=== PATIENT | male | born 1965 | race Caucasian/White ===

== ENCOUNTER 2017-03-11 20:02 | Observation (INO) | payer OTHER ==
[~2017-03-11] VITALS: Ht 165.1 cm; Wt 59.0 kg
[~2017-03-11 20:02] MED LIST: LEVEMIR100 UNIT/1 SC; LISINOPRIL10 M1 PO; MELATONIN5 M7 PO; NOVOLOG100 UNIT/2 SC
--- NOTE | 2017-03-11 21:07 | ED GI/GU/ABDOMINAL COMPLAINT ---
See Addendum History of Present Illness General Chief Complaint: Nausea, Vomiting, Diarrhea Stated Complaint: +V FOR PAST 3 HOURS Source: patient, family Exam Limitations: no limitations Vital Signs & Intake/Output Vital Signs & Intake/Output Vital Signs Date Time Temp Pulse Resp B/P B/P Pulse O2 O2 Flow FiO2 Mean Ox Delivery Rate 03/12 0313 98.7 86 18 146/67 98 03/11 2314 Room Air 03/11 2253 98.0 90 20 162/90 97 Room Air 03/11 2052 97.1 127 18 172/110 97 Room Air ED Intake and Output 03/12 0000 03/11 1200 Intake Total 3000 Output Total Balance 3000 Intake, IV 3000 Patient 130 lb Weight Weight Reported by Patient Measurement Method Allergies Coded Allergies: No Known Allergies (02/03/17) Reconcile Medications Insulin Aspart (Novolog) 100 UNIT/ML VIAL 0 UNITS SC TIDAC/HS PRN DIABETES Insulin Detemir (Levemir) 100 UNIT/ML VIAL 20 UNITS SC DAILY Diabetes Mellitus Lisinopril 10 MG TABLET 10 MG PO DAILY high blood pressure Melatonin 5 MG TABLET 5 MG PO AT BEDTIME PRN SLEEP Triage Note: PT FROM HOME C/O ABD PAIN X 1WEEK. PT STATES HE WAS SEEN AT [facility] 1X WEEK FRO KETOACIDOSIS. PT STATES PT BEGAN NEW MEDIATION OF TRULICITY 0.75MG FOR 2X WEEKS, PT HAS BEEN NAUSEA AND VOMITTING SINCE THEN. PT STATES WITHIN 2X WEEK HE LOSR 20 LBS. PT HAS DIABETES AND IN TRIAGE BSG 210. PTS BP ELEVATED 172/110. PT VOMITTING 10+ EPISODES TODAY OF COFFEE GROUND EMESIS, PT ACTIVELY VOMITTING IN TRIAGE. PT STATES UNABLE TO KEEP DOWN FOOD OR LIQUIDS TODAY. PT STATES HE DID NOT TAKE HIS 20MG OF LISINOPRIL TODAY, LAST DOSE YESTERDAY. PT TODAY MEDICATED AT 1900 WITH 15MG ROXICODONE PO THAT IS NOT PRESCRIBED TO PT "I KNOW I SHOULDNT HAVE TAKEN IT". PT ALSO TOOK 4MG ZOFRAN AT 0800 TODAY WITHOUT RELIEF. PT HAS SHARP SHOOTING PAINS FROM LEFT ABD TO RIGHT NON RADIATING. Triage Nurses Notes Reviewed? yes HPI: 51 yo PMH HTN, DM presenting with N/V/D, abdominal pain. Nausea with 10+ episodes of emesis perday for the last 3 days, some flecks of bloody sputum in emesis this AM prompting presentation to the ED. Associated diarrhea with 3-4 loose watery bowel movements per day, intermittent diffuse crampy abdominal pain. Associated fevers, chest pain, shortness of breath, palpitations, urinary symptoms, headache, neck pain, or focal neurologic symptoms. Patient reports that he has history of diabetes, was not taking his medications for the last 2 years, recent admission for diabetic ketoacidosis, discharged on Januvia, endorses compliance, FSG this AM 200s. l (Reuben Morse MD) Past History Travel History Traveled to [place] past 21 day No Medical History Any Pertinent Medical History? see below for history Neurological: NONE EENT: NONE Cardiovascular: hypertension Respiratory: NONE Gastrointestinal: NONE Hepatic: NONE Renal: NONE Musculoskeletal: NONE Psychiatric: NONE Endocrine: diabetes History of MRSA: No History of VRE: No History of CDIFF: No Surgical History Surgical History: non-contributory Psychosocial History Who do you live with Brother What is your primary language Monegasque Tobacco Use: Never used ETOH Use: denies use Illicit Drug Use: denies illicit drug use Family History Family History, If Any: MOTHER FATHER Relation not specified for: FH: diabetes mellitus FHx: hypertension Hx Contributory? No (Reuben Morse MD) Review of Systems Review of Systems Constitutional: Reports: no symptoms. EENTM: Reports: no symptoms. Respiratory: Reports: no symptoms. Cardiovascular: Reports: no symptoms. GI: Reports: abdominal pain, nausea, vomiting. Genitourinary: Reports: no symptoms. Musculoskeletal: Reports: no symptoms. Skin: Reports: no symptoms. Neurological/Psychological: Reports: no symptoms. Hematologic/Endocrine: Reports: no symptoms. Immunologic/Allergic: Reports: no symptoms. All Other Systems: Reviewed and Negative (Reuben Morse MD) Physical Exam Physical Exam General Appearance: alert, awake, moderate distress Head: atraumatic Ears, Nose, Throat, Mouth: moist mucous membrane Neck: normal inspection, full range of motion Cardiovascular: normal peripheral pulses, tachycardia Gastrointestinal: tenderness Comments: General: Moderate distress, retching brownish liquid into emesis basin Abdomen: Mild diffuse TTP, soft, no rebound or guarding Core Measures ACS in differential dx? Yes Sepsis Present: No Sepsis Focused Exam Completed? No (Reuben Morse MD) Progress Differential Diagnosis: AAA, AMI, appendicitis, biliary colic, bowel obstruction , colon cancer, cholecystitis, diverticulitis, epididymitis, esophageal varices, gastritis, hepatitis, hernia, hemorrhoids, ischemic bowel, inflamm bowel dis, [place]-Wendy tear, orchitis, pancreatitis, prostatitis, peptic ulcer, PUD/GERD, perforated viscous, pyelonephritis, SBO, STD, testicular torsion, ureterolithiasis, urinary retention, urethritis, UTI/pyelo Plan of Care: Orders Procedure Date/time Status Clear Liquid Diet 03/12 B Active BASIC METABOLIC PANEL 03/12 0325 Complete Patient Data 03/12 0157 Active Misc Message 03/12 0141 Active ED Holding Orders 03/12 0141 Active Vital Signs 03/12 0141 Active Code Status 03/[address] in observation 03/11 2231 Active URINALYSIS 03/11 2218 Complete TROPONIN LEVEL 03/11 2107 Complete LIPASE 03/11 2107 Complete LACTIC ACID 03/11 2107 Complete HEPATIC FUNCTION PANEL 03/11 2107 Complete CBC WITHOUT DIFFERENTIAL 03/11 2107 Complete BASIC METABOLIC PANEL 03/11 2107 Complete EKG 03/11 2107 Active Current Medications Sig/Parvin Start time Last Medication Dose Stop Time Status Admin Morphine Sulfate 6 MG ONCE ONE 03/11 231 CAN (Morphine) 03/11 2316 Laboratory Tests 03/12/17 0345: Anion Gap 18 H, Estimated GFR > 60, BUN/Creatinine Ratio 36.7 H, Glucose 172 H, Calcium 8.5 03/11/17 2255: Urine Color YEL, Urine Clarity CLEAR, Urine pH 6.5, Ur Specific [place] 1.015, Urine Protein TRACE H, Urine Ketones >=80, Urine Nitrite NEG, Urine Bilirubin NEG, Urine Urobilinogen 0.2, Ur Leukocyte Esterase NEG, Ur Microscopic SEDIMENT EXAMINED, Micro UA Comment NEGATIVE MICROSCOPIC, Urine Hemoglobin NEG, Urine Glucose >=1000 H 03/11/17 2114: Anion Gap 25 H, Estimated GFR > 60, BUN/Creatinine Ratio 40.0 H, Glucose 234 H, Lactic Acid 3.5 H, Calcium 10.7 H, Total Bilirubin 1.3, Direct Bilirubin 0.5 H, AST 22, ALT 34, Alkaline Phosphatase 88, Troponin I < 0.01, Total Protein 9.5 H, Albumin 5.6 H, Lipase 54, CBC w Diff NO MAN DIFF REQ, RBC 5.37, MCV 87.7, MCH 29.2, RDW 13.3, MPV 7.9, Gran % 88.9 H, Lymphocytes % 6.2 L, Monocytes % 4.8, Eosinophils % 0, Basophils % 0.1, Absolute Granulocytes 13.1 H , Absolute Lymphocytes 0.9 L, Absolute Monocytes 0.7 H, Absolute Eosinophils 0 , Absolute Basophils 0, PUBS MCHC 33.3 Physician MDM: 51 yo PMH HTN, DM presenting with N/V/D, abdominal pain. Tachycardic in the 120s, BP stable, afebrile, remainder of exam as above. DDx: DKA, Gastritis, influenza, biliary pathology, cyclic vomiting. EKG sinus tachycardia, nonischemic. Troponin negative. 3 L normal saline, Zofran ordered. CBC with leukocytosis to 14. BMP with elevated anion gap of 35, hypochloremia, normal bicarbonate, glucose 234. Lactate 3.5. UA pending for ketones, ? DKA given normal Bicarb, relatively low glucose. 2L NS given, repeat FSG 127, will hold insulin for now. CXR and re-evaluation pending, plan for observation in ED overnight, repeat BMP in AM and re-evaluation for full admission vs. discharge. Initial ED EKG: Sinus Tachycardia (Lito BAKER,Reuben) Comments: 03/12/2017 5:03:01 AM patient signed out to me by Dr. Morse at shift size changer. I have updated mike on his test results and clinically he appears well. In fact he wishes to go home and is currently calling for a ride. I have updated him on test results including his mild DKA. I have urged him to resort to a strict diabetic diet and follow up with his machine stuffer automatic on Monday. (Lillian BAKER,Morris Rivera) Departure Departure Condition: Stable Referrals: Patient Has No Primary Care Dr (PCP/Family) Departure Forms: Customer Survey General Discharge Information (Lito BAKER,Reuben) Departure Disposition: HOME OR SELF CARE Clinical Impression Primary Impression: DKA (diabetic ketoacidoses) Qualifiers: Diabetes mellitus type: other specified (including SUNI) Diabetes mellitus complication detail: without coma Qualified Code: E13.10 - Other specified diabetes mellitus with ketoacidosis without coma Additional Instructions: Strict diabetic diet and increase your fluid intake. Record your blood glucose levels before each meal and at bedtime so that your machine stuffer automatic may review these and adjust her medication regimen accordingly. Return if any concerns or sudden worsening. Please note that there might be incidental findings in your evaluation that are unrelated to the current emergency department visit. Please notify your primary care doctor about this emergency department visit in order to obtain and review all of the testing performed so that these incidental findings can be monitored as needed. If you had an x-ray performed, please understand that some fractures may not be seen on the initial set of x-rays. If your symptoms persist you might need a repeat set of x-rays to check for such a fracture. If you had a laceration evaluated, please understand that foreign bodies such as glass or wood may not be visible to the naked eye or on plain x-rays. If the wound becomes red, swollen, increasingly more painful or if there is any drainage from the wound, please have it reevaluated by a physician for the possibility of a retained foreign body. If you're unable to follow up as outlined in the discharge instructions please return to the emergency department. Thank you for choosing the [facility] Emergency Department for your care. It was a pleasure to serve you today. Morris Snyder M.D. [facility] (Lillian BAKER,Morris Rivera)
[2017-03-11 21:24] LABS: ABSOLUTE BASOPHIL COUNT 0 /CUMM (0.0-0.2); ABSOLUTE EOSINOPHIL COUNT 0 /CUMM (0.0-0.7); ABSOLUTE GRANULOCYTE CT 13.1 /CUMM (1.4-6.5); ABSOLUTE LYMPH COUNT 0.9 /CUMM (1.2-3.4); ABSOLUTE MONOCYTE COUNT 0.7 /CUMM (0.10-0.60); BASOPHIL % 0.1 % (0.0-2.0); EOSINOPHIL % 0 % (0-5); HEMATOCRIT 47.1 % (42-52); MEAN CORPUSCULAR HGB 29.2 PG (27.0-31.0); MEAN CORPUSCULAR HGB CONC 33.3 G/DL (33.0-37.0); MEAN CORPUSCULAR VOLUME 87.7 FL (80.0-94.0); MEAN PLATELET VOLUME 7.9 FL (7.4-10.4); PLATELET COUNT 450 /CUMM (130-400); RBC DISTRIBUTION WIDTH 13.3 % (11.5-14.5); RED BLOOD CELL CT 5.37 /CUMM (4.70-6.10); WHITE BLOOD CELL COUNT 14.8 /CUMM (4.8-10.8)
[2017-03-11 21:41] LABS: GRANULOCYTE % 88.9 % (42.2-75.2)
--- NOTE | 2017-03-11 23:37 | RADIOLOGY REPORT ---
EXAMINATION: XR CHEST CLINICAL INFORMATION: Cough COMPARISON: None TECHNIQUE: 2 views of the chest were obtained. FINDINGS: The lungs are well expanded. There is no focal consolidation, edema, or effusion. No pneumothorax. The cardiomediastinal silhouette is within normal limits. No acute osseous abnormality. IMPRESSION: No acute pulmonary findings.
[2017-03-12 05:43] VITALS: BP 138/41
== END 2017-03-12 05:12 ==
LOC: ERH 20:02 → ERHI 22:31 → EDBEDREQSVC 03-12 05:21
PROVIDERS: Student in an Organized Health Care Education/Training Program
DX: E13.10 Other specified diabetes mellitus with ketoacidosis without coma (principal); Z79.4 Long term (current) use of insulin; I10 Essential (primary) hypertension; R11.2 Nausea with vomiting, unspecified; R19.7 Diarrhea, unspecified; R10.9 Unspecified abdominal pain; E86.0 Dehydration
CPT/HCPCS: 71046; 81001; 93005; 93010; 96361; 96372; 96374; 96375; 96376; 99291; G0378; J1815; J2405; J2550